=== PATIENT | female | born 1965 | race Asian ===

== ENCOUNTER → 2023-12-21 | Emergency (ER) | payer OTHER ==
[~2023-12-21] VITALS: Ht 162.6 cm; Wt 75.0 kg
[2023-12-21 19:34] VITALS: TEMP 98.1
[2023-12-21] MEDS: ONDANSETRON HCL 4 MG/2 ML VIAL IVP ONE (19:51)
[2023-12-21] MEDS: SODIUM CHLORIDE 0.9% 1,000 ML IV ONE (20:00)
[2023-12-21 20:04] LABS: BASOPHILS % (AUTO) 0.5 % (0.0-2.0); EOSINOPHILS % (AUTO) 1.7 % (1.0-6.0); HEMATOCRIT 39.5 % (36-46); HEMOGLOBIN 13.1 g/dL (12.0-16.0); LYMPHOCYTES # (AUTO) 1.9 K/uL (1.0-4.8); LYMPHOCYTES % (AUTO) 19.9 % (22.0-44.0); MEAN CORPUSCULAR HEMOGLOBIN 29.8 pg (26.0-34.0); MEAN CORPUSCULAR HGB CONC 33.1 G/dL (31.0-37.0); MEAN CORPUSCULAR VOLUME 90 fL (80-100); MONOCYTES # (AUTO) 0.5 K/uL (0.1-1.0); MONOCYTES % (AUTO) 5.5 % (2.0-9.0); NEUTROPHILS # (AUTO) 6.8 K/uL (1.8-7.7); NEUTROPHILS % (AUTO) 72.4 % (40.0-70.0); PLATELET COUNT (AUTO) 292 K/uL (150-450); RED BLOOD CELL COUNT(AUTO) 4.38 MIL/uL (4.00-5.20); RED CELL DISTRIBUTION WIDTH 13.4 % (11.5-14.5); WHITE BLOOD COUNT (AUTO) 9.4 K/uL (4.5-11.0)
[2023-12-21 20:19] LABS: ALBUMIN 3.4 g/dL (3.4-5.0); BILIRUBIN,DIRECT 0.1 mg/dL (0.00-0.20); BILIRUBIN,TOTAL 0.3 mg/dL (0.1-1.0); CALCIUM, TOTAL 9.1 mg/dL (8.8-10.5); CREATININE 0.96 mg/dL (0.60-1.30); TOTAL PROTEIN, SERUM 7.6 g/dL (6.4-8.2)
[2023-12-21 20:22] LABS: POTASSIUM 2.8 mmol/L (3.5-5.1)
[2023-12-21 20:25] LABS: TROPONIN I-HIGH SENSITIVITY Less Than 4 ng/L (<51)
[2023-12-21] MEDS: POTASSIUM CHL 10 MEQ/WATER 50 ML IV SCH (21:18)
[2023-12-21 21:45] VITALS: BP 169/95; PULSE 61; RESP 16
[2023-12-21] MEDS: METOCLOPRAMIDE HCL 5 MG/ML 2 ML VIAL IVP ONE (21:48)
[2023-12-21 21:52] LABS: COVID AG,FIA SOURCE NASAL SWAB
[2023-12-21 22:09] LABS: SARS-COV2 (COVID) ANTIGEN,FIA Negative (Negative)
== END | disposition still patient (30) ==
LOC: EMS 19:25 → EDBD 19:25
DX: E87.6 Hypokalemia (principal); R11.2 Nausea with vomiting, unspecified; R55 Syncope and collapse; Z20.822 Contact with and (suspected) exposure to COVID-19
CPT/HCPCS: 99285; 96374; 70450; 96361; 71045; 96375; 87426; 80048; 80076; 83690; 84484; 85025; 36415; 93005; J2765; J2405; J3480; J7030